=== PATIENT | male | born 1970 | race African-American/Black ===

== ENCOUNTER 2021-12-01 11:41 | Emergency (ER) | payer OTHER, BC | END 2021-12-01 12:55 | disposition home or self-care (01) | LOC: NAV ERS 11:41 | DX: S00.81XA Abrasion of other part of head, initial encounter (principal); I10 Essential (primary) hypertension; E11.9 Type 2 diabetes mellitus without complications; W25.XXXA Contact with sharp glass, initial encounter; Z79.84 Long term (current) use of oral hypoglycemic drugs; Z79.899 Other long term (current) drug therapy | CPT/HCPCS: 99283 ==